=== PATIENT | male | born 1940 | race Caucasian/White ===

== ENCOUNTER 2019-05-27 15:55 | Emergency (ER) | payer MEDICARE ==
[2019-05-27 16:29] LABS: BASOPHILS % (AUTO) 0.8 % (0.0-5.0); EOSINOPHILS % (AUTO) 2.9 % (0.0-8.0); HEMATOCRIT 40.9 % (42-54); LYMPHOCYTES % (AUTO) 15.4 % (21.0-51.0); MEAN CORPUSCULAR VOLUME 88.3 fL (79-99); MONOCYTES % (AUTO) 12.8 % (3.0-13.0); NEUTROPHILS % (AUTO) 67.2 % (40.0-77.0); PLATELET COUNT (AUTO) 184 K/uL (130-400); RED BLOOD CELL COUNT(AUTO) 4.63 MIL/uL (4.50-6.20); RED CELL DISTRIBUTION WIDTH 14.8 % (11.0-15.5); WHITE BLOOD COUNT (AUTO) 7.7 K/uL (4.8-10.8)
[2019-05-27 16:43] LABS: CREATININE 1.2 mg/dL (0.5-1.5); POTASSIUM 4.2 mmol/L (3.5-5.1)
[2019-05-27 16:47] LABS: ALBUMIN 3.3 g/dL (3.5-5.0); BILIRUBIN,TOTAL 0.6 mg/dL (0.2-1.0); TOTAL PROTEIN, SERUM 7.5 g/dL (6.0-8.3)
[2019-05-27] MEDS ORDERED: IOHEXOL-350 75 ML VIAL IV ONE (17:51)
[2019-05-27 18:11] LABS: INR 2.24 (0.85-1.15); PARTIAL THROMBOPLASTIN TIME 48.5 SEC (26.3-35.5); PROTHROMBIN TIME 22.8 SEC (9.6-11.6)
[2019-05-27] MEDS ORDERED: CLINDAMYCIN HCL 150 MG CAP ONE (18:59)
== END 2019-05-27 19:11 | disposition home or self-care (01) ==
LOC: EDH 15:55
DX: L03.116 Cellulitis of left lower limb (principal); I48.91 Unspecified atrial fibrillation; Z87.891 Personal history of nicotine dependence
CPT/HCPCS: 36415; 71046; 71275; 80053; 82550; 83880; 84484; 85025; 85378; 85610; 85730; 93005; 93971; 99285; Q9967